=== PATIENT | male | born 1990 ===

== ENCOUNTER 2025-02-12 09:37 | Outpatient (AMB) | payer MEDICAID, SELFPAY ==
--- NOTE | 2025-02-12 09:38 | A.OFFVIS_ITS ---
Vital Signs 02/12/25 09:40 Height 5 ft 10 in Weight 185 lb 4 oz BMI 26.6 BP 110/68 Blood Pressure Location Rt brachial Position Sitting Pulse 72 Pulse Source Pulse Oximeter Pulse Oximetry (%) 97 Oxygen Delivery Method Room Air Intake Visit Reasons: ENP - Tremors Intake Note: Tremor Screen Handler Required: No Accompanied by: Self / Same As Patient Allergies No Known Allergies (No Known Allergies*) Allergy (Verified 02/12/25 09:39) Medication List - Last Reconciled 02/12/25 by Ana María Bishop MD albuterol 90 mcg/actuation mcg inhalation cholecalciferol (vitamin D3) 50 mcg PO DAILY glycopyrrolate 1 mg PO BID hydrocortisone 2.5% appl topical BID PRN propranolol 10 mg PO BID PRN simethicone 125 mg PO QID PRN HPI Comments Details: 34y/o Right handed male comes for evaluation of maxime hand tremors. He has h/o anxiety managed without medications.he has occasional panic attacks. He started noticing tremors 5 years ago and in the past 3 years people have noticed his tremors . Tremors are in his hands and it is usually with posture and action . Anxiety worsens it . Tremors does not affect him physically but it concerns him and increases his anxiety. His maternal grandfather has tremors ( mild) No other family h/o tremors. No head injury . No exposure to antipsychotics No exposure to toxins . He works as a behavioral therapist. [facility], LATER [facility] Medical History (Updated 02/12/25 @ 10:04 by Ana María Bishop MD) Tremors of nervous system Vasovagal response Tinea pedis of both feet Constipation Notalgia Herpes labialis Fainting Epigastric discomfort Hyperhidrosis Tremor of both hands Fatigue Vitamin D deficiency Anxiety Family History (Updated 02/12/25 @ 09:54 by Ana María Bishop MD) Mother SLE (systemic lupus erythematosus) Sister SLE (systemic lupus erythematosus) Social History Patient Tobacco Use Status: Former Tobacco user e-Cigarette/Vaping Use: Never Used Physical Exam Vital Signs: Last Vital Signs Pulse 72 02/12/25 09:40 BP 110/68 02/12/25 09:40 Pulse Ox 97 02/12/25 09:40 Oxygen Delivery Method Room Air 02/12/25 09:40 BMI result Body Mass Index 26.6 Const General: cooperative, healthy appearing, comfortable, no acute distress, awake, Physically active and anxious Nutritional Appearance: average body habitus Orientation/consciousness: patient oriented x3 Eyes Pupils: Equal, round and reactive pupils present Neuro Other: mild postural tremors and action tremors General: patient oriented x3, gait normal, tone normal, moves all extremities and no focal motor deficits Cranial nerves: Yes Facial sensation intact/muscles of mastication intact, Yes Equal, round and reactive pupils present, Yes Bilaterally intact EOM present, Yes Nystagmus not present, Yes Normal facial strength present, Yes Midline tongue present, Yes Symmetric palate elevation present and Yes Ability to bilaterally elevate shoulders present Cognition (Neuro): normal cognition Gait exam (Neuro): Normal gait present Motor exam (neuro): 5/5 motor strength present throughout and Normal motor muscle tone present throughout Deep tendon reflexes (DTR's): Right triceps reflex intensity grade: 2+, Left triceps reflex intensity grade: 2+, Rt Biceps (C5, C6): 2+, Left biceps reflex intensity grade: 2+, Right brachioradialis reflex intensity grade: 2+, Left brachioradialis reflex intensity grade: 2+, Right patellar reflex intensity grade: 2+ and Left patellar reflex intensity grade: 2+ Coordination: [id number] test normal Assessment & Plan Assessment & Plan (1) Tremors of nervous system: Comment: exaggerated physiological tremors Code(s): R25.1 - Tremor, unspecified Category: Medical Plan Explained the diagnosis in detail I suggested to try propranolol 10 mg as needed for tremors Medications: New propranolol 10 mg PO BID PRN 60 tabs 0RF tremors Coding Level of Care Code New Pt Level 4 (20704) Diagnoses Tremors of nervous system R25.1
[2025-02-12 09:40] VITALS: BP 110/68; PULSE 72; O2SAT 97; BMI 26.6
--- OUTSIDE RECORDS SUMMARY | 2025-02-12 10:30 | XMS_ITS | Clinical Summary ---
Author Organization [address] [place] [address] [place] [phone] Phone Care Team Providers Care Strapper Operator Name Role Phone Laine Kaur MD Primary Care Provider [phone] Allergies No known active allergies Medications cholecalciferol (VITAMIN D-3) 50 mcg (2,000 unit) tablet Take 1 tablet (2,000 Units total) by mouth 1 (one) time each day. 3 Active simethicone (MYLICON) 125 mg chewable tablet Take 1 Tablet by mouth every 6 hours as needed for Flatulence. 3 Active phentermine 37.5 mg capsule Take 1 capsule (37.5 mg total) by mouth 1 (one) time each day before breakfast. Max Daily Amount: 37.5 mg 30 each 5 Active cholecalciferol (Vitamin D3) 50 mcg (2,000 unit) tablet Take 1 tablet (2,000 Units total) by mouth 1 (one) time each day. 90 tablet 2 5 Active ferrous sulfate 325 mg (65 mg iron) EC tablet Take 1 tablet (325 mg total) by mouth every other day. Do not crush, chew, or split. 45 each 2 5 Active ergocalciferol (VITAMIN D-2) 1,250 mcg (50,000 unit) capsule Take 1 capsule (50,000 Units total) by mouth 1 (one) time per week. 12 capsule 3 5 Active albuterol HFA (PROAIR HFA ; PROVENTIL HFA ; VENTOLIN HFA) 90 mcg/actuation inhaler Inhale 2 puffs by mouth every 6 (six) hours if needed for wheezing. 6.7 g 3 5 Active albuterol HFA (PROAIR HFA ; PROVENTIL HFA ; VENTOLIN HFA) 90 mcg/actuation inhaler Inhale 2 puffs by mouth every 6 (six) hours if needed for wheezing. 6.7 g 3 5 01/21/20 25 Discontinu ed(Reorder ) Active Problems Problem Noted Date Diagnosed Date Anxiety 03/31/2024 Epigastric discomfort 03/31/2024 Fainting 03/31/2024 Vasovagal response 03/31/2024 Heartburn 03/31/2024 Herpes labialis 07/22/2020 Hyperhidrosis 07/22/2020 Tinea pedis of both feet 07/22/2020 Notalgia 07/02/2020 Pain of upper abdomen 07/02/2020 Slow transit constipation 07/02/2020 Encounters Date Type Department Care Team Description 01/20/2025 1:00 PM EDT Office Visit Internal Medicine - [address] [place] [address] Laine Kaur MD Anemia, unspecified type (Primary Dx); Anxiety from Last 3 Months Immunizations Immunization Administration Dates Next Due Tdap Tetanus diptheria acell ular pertussis (Boostrix; Adacel) 7yo and older 02/10/2015 Surgical History Surgery Date Site/Laterality Comments CIRCUMCISION, PRIMARY PROCEDURE: HISTORICAL CIRCUMCISION; COMMENT: 2014 Medical History Medical History Date Comments Anxiety DX:Anxiety Epigastric discomfort DX:Epigast yasmine discomfort Fainting DX:Fainting Vasovagal response DX:Vasovagal response Heartburn DX:Heartburn Depressive disorder DX:Depressiv e disorder Family History Medical History Relation Name Comments Glaucoma Mother Blindness Neg Hx Cataracts Neg Hx Macular degeneration Neg Hx Strabismus Neg Hx Relation Name Status Comments Father Alive Mother Alive Social History Tobacco Use Types Packs/Day Years Used Date Smoking Tobacco: Former Cigarettes Q uit: 06/15/2012 Smokeless Tobacco: Never Tobacco Cessation:Counseling Given: Not Answered Alcohol Use Standard Drinks/Week Comments Yes 0 (1 standard drink = 0.6 oz pur e alcohol) Housing Instability Answer Date Recorde d Are you worried that in the next 2 months you may not have stable housing? Patient declined 07/11/2024 Food Access & Nutrition Answer Date Rec orded Do you have access to a vari ety of food including fruits and vegetables? Yes 07/11/2024 Access to Healthcare Answer Date Record ed Within the last 3 months, ho w many times did you visit the emergency department for your medical care? 0 07/11/2024 Health Literacy Answer Date Recorded How often do you need to hav e someone help you when you read instructions, pamphlets, or other written material from your doctor or pharmacy? Never 07/11/2024 Caregiver: How often do you need to have someone help you when you read instructions, pamphlets, or other written material from your doctor or pharmacy? Not on file 07/11/2024 Financial Risk Answer Date Recorded How hard is it for you to pa y for the very basics like food, housing, medical care, and air conditioning / heating? Patient declined 07/11/2024 Transportation Answer Date Recorded Has the lack of transportati on kept you from meetings, work, or from getting things needed for daily living? No Has the lack of transportati on kept you from medical appointments or from getting medications? No 07/11/2024 Social Isolation Answer Date Recorded How often do you feel lonely or isolated from those around you? Sometimes 07/11/2024 Food Risk Answer Date Recorded Within the past 12 months we worried whether our food would run out before we got money to buy more. Never true 07/11/2024 Within the past 12 months th e food we bought just didn't last and we didn't have money to get more. Never true 07/11/2024 Dependent Care Answer Date Recorded Do you need help finding or paying for care for your loved ones. For example, child life specialist or elderly care for an older adult? Unable to respond 07/11/2024 Education Answer Date Recorded Do you think completing more education or training, like finishing a GED, going to college, or learning a trade, would be helpful for you? N/A 07/11/2024 Employment and Income Answer Date Recor ded During the last four weeks, have you been actively looking for work? Unable to respond 07/11/2024 Living Situation Answer Date Recorded What is your living situation? Unrecognized valu e 07/11/2024 Sex and Gender Information Value Date Recorded Sex Assigned at Male 05/01/2024 11:43 AM EST Legal Sex Male 3:19 AM EST Gender Identity Male 05/01/2024 11:43 AM EST Sexual Orientation Straight 06/04/2024 10 :04 PM EST Obstetrics History Last Filed Vital Signs Vital Sign Reading Time Taken Comments Blood Pressure 114/70 01/20/2025 1:04 PM EDT Pulse 72 01/20/2025 1:04 PM EDT Temperature 36.6 C (97.9 F) 01/20/2025 1:04 PM EDT Respiratory Rate 18 01/20/2025 1:04 PM EDT Oxygen Saturation 99% 01/20/2025 1:04 PM EDT Inhaled Oxygen Concentration - - Weight 78.9 kg (174 lb) 01/20/2025 1:04 PM EDT Height 175.3 cm (5' 9 ) 01/20/2025 1:04 PM EDT Body Mass Index 25.7 01/20/2025 1:04 PM EDT Plan of Treatment Upcoming Encounters Date Type Department Care Team (Late st Contact Info) Description 07/22/2025 9:00 AM EDT Office Visit Internal Medicine - [place] [address] [facility] [address] [place] [address] Laine Kaur MD [address] [facility] [place] [address] [place] [id number] Health Maintenance Due Date Last Done Comments Hepatitis B Vaccines (1 of 3 - 19+ 3-dose series) 2011 HPV Vaccines (1 - 3-dose SCD M series) 2019 COVID-19 Vaccine ( - 2023-2 5 season) 2025 Influenza Vaccine (#1) 2025 DTaP,Tdap,and Td Vaccines (2 - Td or Tdap) 02/10/2025 02/10/2015 Social Influencers of Health Screening 07/11/2025 07/11/2024 Cholesterol Screening (Lipid Panel) 08/02/2029 08/02/2024, 02/10/2023 RSV Immunization Adult Patients (1 - 1-dose 75+ series) 2067 HIV Screening Completed 02/10/2023 Hepatitis C Screening Completed 02/10/2023 Depression Screening Completed 07/11/2024, 11/06/2023 HIB Vaccines Aged Out No longer eligi ble based on patient's age to complete this topic Hepatitis A Vaccines Aged Out No long er eligible based on patient's age to complete this topic IPV Vaccines Aged Out No longer eligi ble based on patient's age to complete this topic MMR Vaccines Aged Out No longer eligi ble based on patient's age to complete this topic Meningococcal ACWY Vaccine Aged Out N o longer eligible based on patient's age to complete this topic Meningococcal B Vaccine Aged Out No l onger eligible based on patient's age to complete this topic Pneumococcal Vaccine: Pediatrics (0 to 5 Years) and At-Risk Patients (6 to 49 Years) Aged Out No longer eligible b ased on patient's age to complete this topic RSV Immunization Patients Under 20 months Aged Out No longer eligible b ased on patient's age to complete this topic Varicella Vaccines Aged Out No longer eligible based on patient's age to complete this topic Procedures Procedure Name Priority Date/Time Associated Diagnosis Comments CBC WITH AUTO DIFFERENTIAL Routine 01/20/2025 1:22 PM EDT Anemia, unspecified type CBC AND DIFFERENTIAL Routine 01/20/2025 1:22 PM EDT Anemia, unspecified type IRON AND TIBC Routine 01/20/2025 1:22 PM EDT Anemia, unspecified type FERRITIN Routine 01/20/2025 1:22 PM EDT Anemia, unspecified type LIPID PANEL WITH REFLEX TO DIRECT LDL Routine 08/02/2024 11:51 AM EDT Anxiety Vitamin D deficiency Adult general medical examination Other fatigue DEPRESSION SCREENING Routine 11/06/2023 HEPATITIS C SCREENING Routine 02/10/2023 HIV SCREENING Routine 02/10/2023 from Last 3 Months or Most Recently Relevant to Health Maintenance Results * (ABNORMAL) CBC auto differential (01/20/2025 1:22 PM EDT) [facility] WBC 7.0 4.8 - 10.8 K/mcL LAB HEMETOLOGY METHOD 01/20/2025 2:24 PM EDT [facility] RBC 5.20 4.50 - 5.50 M/mcL LAB HEMETOLOGY METHOD 01/20/2025 2:24 PM EDT [facility] Hemoglobin 13.9 13.5 - 17.5 g/dL LAB HEMETOLOGY METHOD 01/20/2025 2:24 PM EDT [facility] Hematocrit 44.8 42.0 - 54.0 % LAB HEMETOLOGY METHOD 01/20/2025 2:24 PM EDT [facility] MCV 86.0 79.0 - 98.0 FL LAB HEMETOLOGY METHOD 01/20/2025 2:24 PM EDT [facility] MCH 26.7(L) 27.0 - 32.0 pcg LAB HEMETOLOGY METHOD 01/20/2025 2:24 PM EDT [facility] MCHC 31.0(L) 32.0 - 37.0 g/dL LAB [facility]EMETOLOGY [facility] RDW 13.5 11.0 - 15.0 % LAB HEMETOLOGY METHOD 01/20/2025 2:24 PM EDT [facility] Platelets 217 130 - 400 K/mcL LAB HEMETOLOGY METHOD 01/20/2025 2:24 PM EDT [facility] MPV 11.4(H) 7.0 - 11.0 FL LAB HEMETOLOGY METHOD 01/20/2025 2:24 PM EDT [facility] NRBC 0.0 <1.0 % LAB HEMETOLOGY METHOD [facility] NRBC Absolute 0.00 <0.10 K/mcL LAB HEMETOLOGY METHOD [facility]/20[facility]2025 [facility] Neutrophils Relative 69.4 % LAB HEMETOLOGY METHOD 01/20/2025 2:24 PM [facility] Lymphocytes Relative 23.1 % LAB HEMETOLOGY METHOD [facility]/20[facility]2025 [facility] Monocytes Relative 6.0 % LAB HEMETOLOGY METHOD 01/20/2025 2:24 PM [facility] Eosinophils Relative 1.0 % LAB HEMETOLOGY METHOD 01/20/2025 2:24 PM [facility] Basophils Relative 0.4 % LAB HEMETOLOGY METHOD 01/20/2025 2:24 PM [facility] Immature Granulocytes Relative 0.1 % LAB HEMETOLOGY METHOD 01/20/2025 2:24 PM [facility] Neutrophils Absolute 4.83 1.50 - 7.00 K/mcL LAB HEMETOLOGY METHOD 01/20/2025 2:24 PM [facility] Lymphocytes Absolute 1.61 1.00 - 5.00 K/mcL LAB HEMETOLOGY METHOD 01/20/2025 2:24 PM [facility] Monocytes Absolute 0.42 0.20 - 1.00 K/mcL LAB HEMETOLOGY METHOD [facility]/20[facility] Eosinophils Absolute 0.07 0.00 - 0.50 K/mcL LAB HEMETOLOGY METHOD 01/20/2025 [facility] Basophils Absolute 0.03 0.00 - 0.20 K/mcL LAB HEMETOLOGY METHOD 01/20/2025 2:24 PM [facility] Immature Granulocytes Absolute 0.01 0.00 - 0.03 K/mcL LAB HEMETOLOGY METHOD 01/20/2025 2:24 PM EDT [facility] Blood Venous blood specimen / Unknown Venipuncture / Unknown 01/20/2025 1:22 PM EDT 01/20/2025 1:22 PM EDT us Laine Kaur MD LAB BLOOD ORDERABLES Final Res ult Performing Organization Address City/[facility]/ZIP Co de Phone Number [facility] [address] [place] [address], [place] [phone] * (ABNORMAL) Iron and TIBC (01/20/2025 1:22 PM EDT) Iron 41(L) 50 - 160 mcg/dL LAB CHEMISTRY METHOD 01/20/2025 4:06 PM EDT [facility] TIBC 327 250 - 450 mcg/dL LAB CHEMISTRY METHOD 01/20/2025 4:06 PM EDT [facility] Iron Saturation 13(L) 20 - 50 % LAB CHEMISTRY METHOD 01/20/2025 4:06 PM EDT [facility] Blood Venous blood specimen / Unknown Venipuncture / Unknown 01/20/2025 1:22 PM EDT 01/20/2025 1:22 PM EDT us Laine Kaur MD LAB BLOOD ORDERABLES Final Res ult Performing Organization Address City/[facility]/ZIP Co de Phone Number [facility] [address] [place] [address], [place] [phone] * Ferritin (01/20/2025 1:22 PM EDT) Ferritin 52 26 - 388 ng/mL LAB CHEMISTRY METHOD 01/20/2025 4:06 PM EDT [facility] Blood Venous blood specimen / Unknown Venipuncture / Unknown 01/20/2025 1:22 PM EDT 01/20/2025 1:22 PM EDT us Laine Kaur MD LAB BLOOD ORDERABLES Final Res ult [facility] [address] [place] [address], [place] [phone] * Lipid panel with reflex to direct LDL (08/02/2024 11:51 AM EDT) [facility] Cholesterol 148 0 - 200 mg/dL LAB CHEMISTRY METHOD 08/02/2024 3:44 PM EDT [facility] Triglycerides 46 0 - 150 mg/dL LAB CHEMISTRY METHOD 08/02/2024 3:44 PM EDT [facility] HDL 66 >=40 mg/dL LAB CHEMISTRY METHOD 08/02/2024 3:44 PM EDT [facility] LDL Calculated 73 0 - 100 mg/dL LAB CHEMISTRY METHOD 08/02/2024 3:44 PM EDT [facility] VLDL Cholesterol Quintin 9.2 mg/dL LAB CHEMISTRY METHOD 08/02/2024 3:44 PM EDT [facility] Non HDL Chol. (LDL+VLDL) 82 <145 mg/dL LAB CHEMISTRY METHOD 08/02/2024 3:44 PM EDT [facility] Chol/HDL Ratio 2.2 0.0 - 4.4 LAB CHEMISTRY METHOD 08/02/2024 3:44 PM EDT [facility] Blood Venous blood specimen / Unknown Venipuncture / Unknown 08/02/2024 11:51 AM EDT 08/02/2024 12:36 PM EDT us Laine Kaur MD LAB BLOOD ORDERABLES Final Res ult [facility] [address] [place] [address], [place] [phone] * Depression Screening (11/06/2023) Depression Screening ABSTRACTED Historical Provider HEALTH MAINTENANCE Final Result * HIV Screening (02/10/2023) HIV Screening ABSTRACTED Historical Provider HEALTH MAINTENANCE Final Result * Hepatitis C Screening (02/10/2023) Hepatitis C Screening ABSTRACTED Historical Provider HEALTH MAINTENANCE Final Result from Last 3 Months or Most Recently Relevant to Health Maintenance Insurance [facility] [employer] Care Teams Strapper Operator Relationship Specialty Start Date End Date Laine Kaur MD [address] [facility] [address] [place] [id number] PCP - General Internal Medicine 05/14/24
--- OUTSIDE RECORDS SUMMARY | 2025-02-12 10:30 | XMS_ITS | Clinical Summary ---
Author Organization [facility] Address [address] [place] [address] Care Team Providers Care [employer] Senior Specialist Name Role Phone Unavailable Primary Care Provider Unavailabl e Social History Tobacco Use Types Packs/Day Years Used Date Smoking Tobacco: Never Assessed Sex and Gender Information Value Date Recorded Sex Assigned at Not on file Gender Identity Not on file Sexual Orientation Not on file Plan of Treatment Not on file
== END 2025-02-12 10:10 | disposition home or self-care (01) ==
LOC: HO.HSMS 09:38
PROVIDERS: PCP Internal Medicine; Visit Provider Psychiatry & Neurology Neurology
DX: R25.1 Tremor, unspecified (principal)
CPT/HCPCS: 99204

== ENCOUNTER → 2025-02-12 09:37 | Outpatient (BNVA) | payer MEDICAID, SELFPAY | PROVIDERS: PCP Internal Medicine; Visit Provider Psychiatry & Neurology Neurology | DX: R25.1 Tremor, unspecified (principal) | CPT/HCPCS: 99202 ==